=== PATIENT | female | born 1970 | race Caucasian/White ===

== ENCOUNTER 2016-10-11 18:14 | Emergency (ER) | payer OTHER ==
[2016-10-11 18:31] VITALS: TEMP 98
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
[2016-10-11] MEDS ORDERED: HYDROmorphone HCL INJ 2 MG/ML VIAL IV ONE (19:19)
[2016-10-11] MEDS ORDERED: ONDANSETRON INJ 4 MG/2 ML VIAL IV ONE (19:19)
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
--- NOTE | 2016-10-11 20:20 | RAD ---
EXAM DESCRIPTION: Humerus,Right CLINICAL HISTORY: distal humerus fx seen on elbow x-ray COMPARISON: None FINDINGS: Two views of the right humerus were submitted. There is a comminuted displaced fracture of the distal humeral diaphyses. Bone mineralization is within normal limits. There is no radiopaque foreign body material. IMPRESSION: Comminuted displaced fracture of the distal humeral diaphysis. Electronically signed by: Velasquez Morse MD 10/11/2016 8:19 PM CDT
[2016-10-11 21:06] VITALS: BP 130/80; O2SAT 96
[2016-10-11] MEDS ORDERED: HYDROcodone 10MG/APAP 325MG 1 EA TAB PO ONE (21:06)
[2016-10-11] MEDS ORDERED: HYDROCOD/APAP 10/325 (ER DISP) # 3 tablets PO ONE (21:06)
== END 2016-10-11 21:30 | disposition home or self-care (01) ==
LOC: ER 18:14
DX: S42.491A Other displaced fracture of lower end of right humerus, initial encounter for closed fracture (principal); V47.6XXA Car passenger injured in collision with fixed or stationary object in traffic accident, initial encounter; Y92.410 Unspecified street and highway as the place of occurrence of the external cause
CPT/HCPCS: 73060; 73080; J1170; J2405